=== PATIENT | female | born 1990 | race Two or more races ===

== ENCOUNTER 2019-12-19 12:27 | Emergency (ER) | payer OTHER ==
[~2019-12-19] VITALS: Ht 154.9 cm; Wt 90.5 kg
[2019-12-19 12:34] VITALS: BP 125/84
--- NOTE | 2019-12-19 14:56 | NUR ---
ALL RESULTS ARE BACK AT THIS TIME. CHART UP FOR RECHECK.
== END 2019-12-19 15:13 | disposition home or self-care (01) ==
LOC: ED 13:08
DX: S16.1XXA Strain of muscle, fascia and tendon at neck level, initial encounter (principal); M54.6 Pain in thoracic spine; M79.631 Pain in right forearm; V49.49XA Driver injured in collision with other motor vehicles in traffic accident, initial encounter; Y93.89 Activity, other specified; Y92.488 Other paved roadways as the place of occurrence of the external cause; Y99.8 Other external cause status
CPT/HCPCS: 72125; 99284